=== PATIENT | male | born 1975 | race Caucasian/White ===

== ENCOUNTER 2017-07-31 07:39 | Outpatient (CLI) | payer OTHER ==
[2017-07-31] MEDS ORDERED: IOPAMIDOL-300 100 ML VIAL ONE (07:52)
[2017-07-31] MEDS ORDERED: IOPAMIDOL-300 50 ML VIAL ONE (07:52)
[2017-07-31] MEDS ORDERED: IOPAMIDOL-300 50 ML VIAL PO ONE (08:49)
[2017-07-31] MEDS ORDERED: IOPAMIDOL-300 100 ML VIAL IVP ONE (09:03)
--- NOTE | 2017-08-01 09:33 | CT Report ---
EXAM: CT ABDOMEN AND PELVIS EXAM DATE: 07/31/2017 09:20 AM. CLINICAL HISTORY: ABDOMINAL PAIN. COMPARISONS: None. TECHNIQUE: Routine helical CT imaging was performed through the abdomen and pelvis. IV contrast: Yes . Enteric contrast: Yes. Reconstructions: Coronal and sagittal. In accordance with CT protocol optimization, one or more of the following dose reduction techniques w ere utilized for this exam: automated exposure control, adjustment of mA and/or KV based on patient s ize, or use of iterative reconstructive technique. FINDINGS: Lung Bases: Unremarkable. Liver: Unremarkable. No suspicious masses. Gallbladder/Bile Ducts: Unremarkable. Spleen: Unremarkable. Pancreas: Unremarkable. Adrenal Glands: Unremarkable. Kidneys: Tiny left renal cyst. No suspicious masses or hydronephrosis. Peritoneal Cavity/Bowel: No bowel obstruction or inflammatory process seen. No free air or significan t free fluid. No masses or adenopathy. The appendix is normal. Moderate stool burden. Pelvic Organs: Bladder and prostate appear unremarkable. Vasculature: No aneurysms or other significant abnormality. Bones: No significant abnormality. Other: None. IMPRESSION: 1. No acute inflammatory or obstructive process seen in the abdomen or pelvis. 2. Moderate stool burden. [facility] Referring Provider Line: [phone] SITE ID: [id number]
== END 2017-07-31 07:40 | disposition home or self-care (01) ==
LOC: DI 07:39
PROVIDERS: ATTEND Family Medicine
DX: R10.9 Unspecified abdominal pain (principal)
CPT/HCPCS: 74177; Q9967

== ENCOUNTER 2023-07-22 15:33 | Outpatient (CLI) | payer OTHER ==
--- NOTE | 2023-07-22 16:16 | Sleep Patient Instructions ---
Sleep Center Visit Summary - Patient Visit Information Reason for Visit: Initial consult for evaluation of sleep disordered breathing and other sleep issues. - Patient Instructions Instructions Attached: Sleep Study, Sleep Clinic Visit, Sleep Study Home Monitor Additional Instructions: You will be completing a sleep study, either an in-lab polysomnography (PSG) or home sleep study (HST). You will follow-up in the sleep care office after the sleep study is completed to hear the results and talk about therapy, if needed. You will be called by our office staff to schedule this appointment, but you may contact us with any questions. - Clinic Information Contact: [facility] [address] [place] [address] [email or web address] T: [phone]
--- NOTE | 2023-07-22 16:21 | SLEEP CARE CONSULTATION ---
Information from patient questionnaire entered by Ronal Rodarte. I have reviewed and concur with the information entered by Ronal Rodarte. This document represents the service I personally performed and the decisions made by me, Belinda Diaz ARNP. History of Present Illness Service Date and Time: 07/22/2023 1533 Reason for Visit: New patient Chief Complaint: reports: Snoring Date of Onset: LIFELONG BUT WORSENED THE LAST FEW MONTHS Usual bedtime: 11PM-12AM Time it takes to fall asleep: 5MIN Snores at night: Yes Observed to quit breathing while asleep: No Sleeps alone due to snoring: Yes Number of times waking at night: 0 Reasons for waking at night: reports: Snoring (rare snort if laying on back). denies: Choking, Gasping for air Toss, Turn, or Twitch while sleeping: No Recalls having dreams: Yes (sometimes) Usually gets out of bed at: 630-8AM Feels refreshed in the morning: Yes (usually) Morning headache: Yes (more on weekends when getting more sleep) Sleepy or fatigued during the day: Yes (sometimes) Ever fallen asleep while driving: No Takes day naps: No Prior sleep studies: No Additional HPI information: I had the pleasure of seeing HANS ELENA today regarding the possibility of him having a sleep disorder. His current complaint is snoring. His is telling him that his snoring is much louder in a few months and they are sleeping in separate rooms because of it so she can sleep. He states they do not like sleeping apart and are trying to find out cause and what can be done. He states he usually wakes up feeling rested. He is sometimes sleepy or tired during the day. He denies any pauses in breathing, waking up choking or gasping for air. He denies any problems with memory or concentration but states he thinks he has ADHD because his daughter was diagnosed with it and he has similar symptoms. He is not currently on medications and has no significant medical history. 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 Patient is and lives in [place]. Have you smoked in the past 12 months: No Alcohol use: Yes Alcohol amount and frequency: ONE DRINK LESS THAN ONE PER WEEK Caffeine use: Yes Caffeine amount and frequency: ONE COFFEE DAILY Family History Family history of sleep disordered breathing: No Allergies and Home Medications Known drug allergies: No Drug allergies reviewed: Yes Home medication list reviewed: Yes Allergy and home medication list: Home Medications Medication Instructions Recorded Confirmed Last Taken Type No Known Home Medications 07/22/23 07/22/23 Unknown History Review of Systems Weight gain over past 5 years: 5 Cardiovascular: reports: high blood pressure Gastrointestinal: denies: heartburn Neurological: denies: headaches Psychiatric: reports: Attention Deficit Hyperactivity. denies: anxiety, depress ion Ear/Nose/Throat: denies: tonsillectomy, wisdom teeth removed Musculoskeletal: reports: joint pain Physical Exam Vital signs obtained and entered by: RONAL Gallegos MA Blood Pressure: 130/80 (LEFTARM) Cuff size: regular Heart Rate: 62 O2 Saturation: 96 Height: 6 ft 1 in Weight: 238 lb 6.4 oz Body Mass Index: 31.4 BMI Classification: Obese Neck circumference: 17.5 Mouth and throat: narrow oropharynx Soft palate: long Hard palate: normal Uvula: normal Uvula visualization: 25% Mallampati Class III Tongue: normal in size Tonsils: 3+/kissing Neck: normal w/o lymphadenopathy or thyromegaly Heart: regular rate and rhythm Lungs: clear bilaterally Impression and Plan 1. Suspected Obstructive Sleep Apnea-Hypopnea Syndrome, as suggested by a history of loud and irregular snoring, morning headache and fatigue. Narrow oropharynx and obesity are common predisposing factors for obstructive sleep apnea-hypopnea syndrome. I recommend proceeding to polysomnography to confirm the diagnosis and to assess severity. If the patient has significant sleep disordered breathing, a manual CPAP titration study will also be performed to find the optimal treatment pressure. I informed the patient of what the sleep studies involve and after some discussion, obtained agreement to proceed. The pathophysiology of obstructive sleep apnea-hypopnea syndrome was discussed with the patient and health risks of cardiovascular and cerebrovascular disease if not treated. Risks of drowsy driving discussed in detail and patient advised to avoid long distance driving and to mold puller at the first sign of drowsiness. Patient agreed to plan. * Schedule polysomnography. * Avoid long distance driving or driving when feeling sleepy. * Avoid alcohol, sedative and muscle relaxant around bedtime. * Attempt to lose weight. * Review instructions provided by trained office staff on how to prepare for the sleep study. * Return for follow-up after sleep study completed. Counseling Topics: Weight loss health impact Visit Type: In Office Time Spent with Patient (minutes): 23 Provider Statement: I spent 100% of the Face to Face Visit with the patient with greater than 50% spent counseling the patient and coordination of care.
[2023-07-22 16:27] VITALS: BP 130/80; O2SAT 96
== END 2023-07-22 15:34 | disposition home or self-care (01) ==
LOC: SC 15:33
PROVIDERS: ATTEND Nurse Practitioner Family
DX: R06.83 Snoring (principal); R53.83 Other fatigue; E66.9 Obesity, unspecified; Z68.31 Body mass index [BMI] 31.0-31.9, adult
CPT/HCPCS: 99202; 99212

== ENCOUNTER 2023-08-19 12:23 | Outpatient (CLI) | payer OTHER | END 2023-08-19 12:24 | disposition home or self-care (01) | LOC: SC 12:23 | PROVIDERS: ATTEND Nurse Practitioner Family | DX: G47.33 Obstructive sleep apnea (adult) (pediatric) (principal); R09.02 Hypoxemia; E66.9 Obesity, unspecified; Z68.31 Body mass index [BMI] 31.0-31.9, adult | CPT/HCPCS: 95806 ==

== ENCOUNTER 2024-03-09 14:02 | Outpatient (CLI) | payer OTHER ==
--- NOTE | 2024-03-09 14:33 | Sleep Patient Instructions ---
Sleep Center Visit Summary - Patient Visit Information Reason for Visit: First compliance follow-up - Patient Instructions Additional Instructions: You were here for follow up of CPAP therapy. You will be continued on CPAP therapy with pressure at 7-9 cmH2O. Please let us know if the pressure change is uncomfortable and we can make further adjustments of the pressure. You should follow up with sleep care in 1-2 months. You may contact us sooner for any questions or concerns. - Clinic Information Contact: [facility] [address] [place] [address] [email or web address] T: [phone]
--- NOTE | 2024-03-09 14:36 | SLEEP CARE CONSULTATION ---
Information from patient questionnaire entered by Karolyn Rodarte. I have reviewed and concur with the information entered by Karolyn Rodarte. This document represents the service I personally performed and the decisions made by , Belinda Diaz ARNP. History of Present Illness Service Date and Time: 03/09/2024 1402 Previous diagnosis: Mild, Obstructive Sleep Apnea-Hypopnea Syndrome AHI: 5.1 Reason for follow up: first compliance Equipment type: CPAP (ResMed Airsense 11, s/u) Equipment obtained from: [employer] ([employer]) Mask style: Nasal Mask brand: Resmed (N20, large cushion) Backup mask available: No Last cushion change: 1 month Prior sleep studies: No Type of Sleep Study: Home sleep study (COMPLETED 08/19/2023) HPI additional information: HANS ELENA was diagnosed to have mild, AHI 5.1, obstructive sleep apnea- hypopnea syndrome and returned today for CPAP therapy first compliance follow- up. Sleep Study - Results Type of Sleep Study: Home sleep study (COMPLETED 08/19/2023) Prior sleep studies: No CPAP Compliance Data - Data Reviewed with Patient Average duration of nightly device use: 6 hours 26 minutes Compliance rate %: 70 (24/30 days used; 77% in last 30 days) Current pressure setting (cmH2O): 4-15 (median 4.9, avg 7.4, max 8.6) Average residual AHI: 0.8 Central apnea: 0.3 Obstructive apnea: 0.3 Hypopnea: 0.2 Average large leak: 5 L/min Subjective Patient concerns: denies: aerophagia, mask discomfort, air blowing in eyes, mask leak noise, condensation in mask/hose, nasal congestion, dry mouth, nose, throat, epistaxis Observed to snore while using device: Yes Current pressure setting perceived as: comfortable On therapy, patient: reports: sleeping better, awakening more refreshed, being more awake and alert during the day, more rested overall. denies: drowsiness while driving Initial [place] Sleepiness Scale score: 8 (07/22/23) Current [place] Sleepiness Scale score: 5 (03/09/24) Allergies and Home Medications Known drug allergies: No Drug allergies reviewed: Yes Home medication list reviewed: Yes (no changes) Allergy and home medication list: Allergies No Known Drug Allergies Allergy (Verified 03/07/24 10:24) Review of Systems Review of systems same as previous: Yes (NO CHANGE) Physical Exam Vital signs obtained and entered by: KAROLYN Gallegos MA Blood Pressure: 149/83 (RIGHT ARM) Cuff size: long Heart Rate: 73 O2 Saturation: 97 Height: 6 ft (PER PT) Weight: 246 lb 9.6 oz Body Mass Index: 33.4 BMI Classification: Obese Impression and Plan 1. Obstructive Sleep Apnea-Hypopnea Syndrome, mild, with good treatment compliance and good apnea control. On CPAP therapy, the patient has better sleep quality and is more rested overall. He is getting used to the CPAP mask. His says his snoring has not improved much. He does get a little bit of dry mouth but is not sure that he is mouth breathing much. I will have him try either a chinstrap or mouth snoring strips to see if this will reduce snoring more. The patients pressure will be changed to autoCPAP 7-9 cmH20 to reflect pressure being used and to reduce snoring. Patient advised to contact me if pressure change is uncomfortable so that it can be adjusted. Goals for apnea control discussed. Patient's apnea severity and rationale for treatment to reduce apnea, improve sleep quality and reduce cardiovascular and cerebrovascular events was reviewed. 2. Obesity, unspecified. Currently patients BMI is 33.4. Obesity increases the risk of apnea, CPAP pressure requirements and overall health risks especially cardiovascular and diabetes. Thus patient is advised to lose weight. * Change auto CPAP pressure to 7-9 cmH2O * Notify me if snoring with mask or feeling that the pressure is too much or too little * Attempt to lose weight * Call this office if any problems using CPAP * Return for follow up in 1-2 months, or sooner if concerns arise Counseling Topics: Spare mask, Weight loss health impact Follow up with Sleep Care in: 1-2 months Visit Type: In Office Time Spent with Patient (minutes): 20 Provider Statement: I spent 100% of the Face to Face Visit with the patient with greater than 50% spent counseling the patient and coordination of care.
[2024-03-09 14:40] VITALS: BP 149/83; O2SAT 97
== END 2024-03-09 14:03 | disposition home or self-care (01) ==
LOC: SC 14:02
PROVIDERS: ATTEND Nurse Practitioner Family
DX: G47.33 Obstructive sleep apnea (adult) (pediatric) (principal); E66.9 Obesity, unspecified; Z68.33 Body mass index [BMI] 33.0-33.9, adult
CPT/HCPCS: 99212; 99213

== ENCOUNTER 2024-06-02 09:11 | Outpatient (CLI) | payer OTHER ==
--- NOTE | 2024-06-02 09:37 | Sleep Patient Instructions ---
Sleep Center Visit Summary - Patient Visit Information Reason for Visit: 6 week followup - Patient Instructions Additional Instructions: You were here for follow up of CPAP therapy. You will be continued on CPAP therapy with pressure at 7-9 cmH2O. Try the full face mask fitted to you in the office, let me know if you want to change to this one or get a refitting for different one and I will send request to [employer]. You should follow up with sleep care in 3 months. You may contact us sooner for any questions or concerns. - Clinic Information Contact: [facility] [address] [place] [address] [email or web address] T: [phone]
--- NOTE | 2024-06-02 09:41 | SLEEP CARE CONSULTATION ---
Information from patient questionnaire entered by Karolyn Rodarte. I have reviewed and concur with the information entered by Karolyn Rodarte. This document represents the service I personally performed and the decisions made by , Belinda Diaz ARNP. History of Present Illness Service Date and Time: 06/02/2024 0911 Previous diagnosis: Mild, Obstructive Sleep Apnea-Hypopnea Syndrome AHI: 5.1 Reason for follow up: other (6 WEEK F/U) Equipment type: CPAP (ResMed Airsense 11, s/u 01/19/24) Equipment obtained from: [employer] (getting supplies) Mask style: Nasal Backup mask available: No Last cushion change: 3 months Prior sleep studies: No Type of Sleep Study: Home sleep study (COMPLETED 08/19/2023) HPI additional information: HANS ELENA was diagnosed to have mild, AHI 5.1, obstructive sleep apnea- hypopnea syndrome and returned today for CPAP therapy six week after pressure change follow-up. Sleep Study - Results Type of Sleep Study: Home sleep study (COMPLETED 08/19/2023) Prior sleep studies: No CPAP Compliance Data - Data Reviewed with Patient Average duration of nightly device use: 6 HRS 12 MINS Compliance rate %: 59 (04/17/24-05/30/24; 27/44 days used) Current pressure setting (cmH2O): 7-9 Average residual AHI: 0.9 Central apnea: 0.4 Obstructive apnea: 0.2 Hypopnea: 0.2 Average large leak: 3.4 L/min Subjective Missed days of use due to: reports: [facility] [place], did not take CPAP) Patient concerns: reports: mask leak noise. denies: aerophagia, mask discomfort, air blowing in eyes, condensation in mask/hose, nasal congestion, dry mouth, nose, throat, epistaxis Observed to snore while using device: Yes (when he is laying on his back, oral venting) Current pressure setting perceived as: comfortable On therapy, patient: reports: sleeping better, awakening more refreshed, being more awake and alert during the day, more rested overall. denies: drowsiness while driving Initial [place] Sleepiness Scale score: 8 (07/22/23) Current [place] Sleepiness Scale score: 5 Allergies and Home Medications Known drug allergies: No Drug allergies reviewed: Yes Home medication list reviewed: Yes (no changes) Allergy and home medication list: Allergies No Known Drug Allergies Allergy (Verified 05/31/24 09:05) Review of Systems Review of systems same as previous: Yes (no changes) Physical Exam Vital signs obtained and entered by: BELINDA NELSON Blood Pressure: 137/84 Cuff size: long (left arm) Heart Rate: 60 O2 Saturation: 99 Height: 6 ft (PER PT) Weight: 241 lb 6.4 oz Weight change since last visit: 5 lb loss Body Mass Index: 32.7 BMI Classification: Obese Impression and Plan 1. Obstructive Sleep Apnea-Hypopnea Syndrome, mild, with fair treatment compliance and good apnea control. On CPAP therapy, the patient has better sleep quality and is more rested overall. His is telling him he still snores when he is on his back because his mouth is open. He is using a nasal mask. He would like to try a full face mask to see if this will reduce oral venting. I fit him to a ResMed F20, large cushion, to try at home. If he decides it works better, then he will let me know and I will send a change in mask to his DME. He voiced understanding and agreement with plan. Patient's apnea severity and rationale for treatment to reduce apnea, improve sleep quality and reduce cardiovascular and cerebrovascular events was reviewed. 2. Obesity, unspecified. Currently patients BMI is 32.7. Obesity increases the risk of apnea, CPAP pressure requirements and overall health risks especially cardiovascular and diabetes. Thus, patient is advised to continue to try to lose weight. * Continue auto CPAP pressure at 7-9 cmH2O * Try ResMed Airfit F20 mask, large cushion * Notify me if snoring with mask or feeling that the pressure is too much or too little * Attempt to lose weight * Call this office if any problems using CPAP * Return for follow up in 3 months, or sooner if concerns arise Mask provided: Yes Counseling Topics: Spare mask, Weight loss health impact Follow up with Sleep Care in: 3 months Visit Type: In Office Time Spent with Patient (minutes): 21 Provider Statement: I spent 100% of the Face to Face Visit with the patient with greater than 50% spent counseling the patient and coordination of care.
[2024-06-02 09:42] VITALS: BP 137/84; O2SAT 99
== END 2024-06-02 09:12 | disposition home or self-care (01) ==
LOC: SC 09:11
PROVIDERS: ATTEND Nurse Practitioner Family
DX: G47.33 Obstructive sleep apnea (adult) (pediatric) (principal); E66.9 Obesity, unspecified; Z68.32 Body mass index [BMI] 32.0-32.9, adult
CPT/HCPCS: 99212; 99213

== ENCOUNTER 2024-07-07 12:32 | Day surgery (SDC) | payer OTHER ==
[2024-07-07] MEDS: LACTATED RINGERS 1,000 ML IV ONE (12:35)
--- NOTE | 2024-07-07 13:26 | ANESTHESIA ---
Pre-Anesthesia VS, & Labs - Diagnosis SCREENING - Procedure COLONOSCOPY Vital Signs: Temp Pulse Resp BP Pulse Ox O2 Flow Rate 37.4 C 66 17 136/76 H 96 07/07/24 12:35 07/07/24 12:35 07/07/24 12:35 07/07/24 12:35 07/07/24 12:35 Height: 6 ft Weight (kg): 106.3 kg Body Mass Index: 31.8 BMI Classification: Obese - NPO >8 hours (BOWEL PREP COMPLETED) Home Medications and Allergies No Known Home Medications 07/22/23 Allergies/Adverse Reactions: Allergies Allergy/AdvReac Type Severity Reaction Status Date / Time No Known Drug Allergies Allergy Verified 05/31/24 09:05 Anes History & Medical History - Anesthetic History Anesthesia Complications: reports: No previous complications Family history of Anesthesia Complications: Denies Family history of Malignant Hyperthermia: Denies - Medical History Cardiovascular: reports: None Pulmonary: reports: Sleep apnea, CPAP use Gastrointestinal: reports: None Urinary: reports: None Neuro: reports: None Musculoskeletal: reports: None Endocrine/Autoimmune: reports: None Blood Disorders: reports: None Skin: reports: None Smoking Status: Never smoker Psychosocial: reports: No issues indicated History of Cancer?: No - Surgical History Orthopedic: reports: ACL reconstruction Results - EKG Results EKG Comparison: Reviewed EKG, Normal EKG Exam General: Alert, Oriented x3, Cooperative, No acute distress Dental: WNL Mouth Openin Fingerbreadth Neck Mobility: Normal Mallampati classification: II Thyromental Distance: 4-6 cm Mental/Cognitive Status: Alert/Oriented X3, Normal for patient Cognitive Status: Within normal limits Plan Anesthesia Type: General Consent for Procedure(s) Verified and Reviewed: Yes Code Status: Attempt Resuscitation ASA classification: 1-Healthy patient Is this case an emergency?: No
[2024-07-07] MEDS ORDERED: PROPOFOL 500 MG/50 ML 500 MG/50 ML VIAL ONE (14:10)
[2024-07-07] MEDS ORDERED: LIDOCAINE-PF 2% 10 ML AMP SUBQ ONE (14:10)
--- NOTE | 2024-07-07 14:18 | HISTORY & PHYSICAL EXAMINATION ---
Chief Complaint - Chief Complaint Chief Complaint: here for colonoscopy History of Present Illness - History Obtained From Records Reviewed: yes History obtained from: pt Exam Limitations: none - History of Present Illness HPI Comment/Other: here for first colonoscopy for screening. no fhx colon ca, no symptoms, no anemia. History - Past Medical History Cardiovascular: reports: None Respiratory: reports: Sleep apnea, CPAP use Neuro: reports: None Endocrine/Autoimmune: reports: None GI: reports: None : reports: None HEENT: reports: None Psych: reports: None Musculoskeletal: reports: None Derm: reports: None MRSA Hx?: No - Past Surgical History Ortho: reports: ACL reconstruction Meds/Allgy - Home Medications Home Medications: Ambulatory Orders Medication Instructions Recorded Confirmed No Known Home Medications 07/22/23 03/09/24 - Allergies Allergies/Adverse Reactions: Allergies Allergy/AdvReac Type Severity Reaction Status Date / Time No Known Drug Allergies Allergy Verified 05/31/24 09:05 Review of Systems - Other Findings Other Findings: 10 pt ros as above otherwise unremarkable Exam - Vital Signs Vital Signs: Vital Signs x48h Temp Pulse Resp BP Pulse Ox 07/07/24 12:35 37.4 C 66 17 136/76 H 96 - Physical Exam General Appearance: positive: No acute distress, Alert Eyes Bilateral: positive: PERRL ENT: positive: No signs of dehydration Neck: positive: No JVD, Trachea midline Respiratory: positive: No respiratory distress Cardiovascular: positive: Regular rate & rhythm Abdomen: positive: No distention Neurologic/Psychiatric: positive: Oriented x3 Conclusion/Plan - Problem List (1) Colon cancer screening Conclusion/Plan: plan colonoscopy. parq held and consent obtained
[2024-07-07] MEDS ORDERED: GLYCOPYRROLATE 1 MG/5 ML VIAL ONE (14:31)
[2024-07-07] MEDS: LACTATED RINGERS 400 ML IV ONE (14:54)
[2024-07-07 15:16] VITALS: BP 126/83; O2SAT 98
--- NOTE | 2024-07-07 16:35 | ANESTHESIA POST OP EVALUATION ---
Anesthesia Post Eval - Post Anesthesia Eval Vitals: Last Vital Signs Temp 36.7 C 07/07/24 14:54 Pulse 79 07/07/24 15:14 Resp 14 07/07/24 15:14 BP 126/83 H 07/07/24 15:14 Pulse Ox 98 07/07/24 15:14 O2 Flow Rate CV Function Including HR & BP: Stable Pain Control: Satisfactory Nausea & Vomiting: Negative Mental Status: Baseline Respiratory Status: Airway Patent Hydration Status: Satisfactory Anesthesia Complications: None
== END 2024-07-07 12:33 | disposition home or self-care (01) ==
LOC: SDS 12:32
PROVIDERS: ATTEND Surgery
PROC: 0DBM8ZX Excision of Descending Colon, Via Natural or Artificial Opening Endoscopic, Diagnostic (ICD-10-PCS; principal; 2024-07-07 13:30)
DX: Z12.11 Encounter for screening for malignant neoplasm of colon (principal); K63.5 Polyp of colon; G47.30 Sleep apnea, unspecified; E66.9 Obesity, unspecified; Z68.31 Body mass index [BMI] 31.0-31.9, adult
CPT/HCPCS: 45380; J7120